=== PATIENT | female | born 1995 ===

== ENCOUNTER 2024-01-06 10:40 | Outpatient (AMB) | payer OTHER, SELFPAY ==
--- NOTE | 2024-01-06 10:28 | AM.OFFWIN_ITS ---
Intake Vital Signs 01/06/24 10:40 Height 5 ft 2 in Weight 223 lb BMI 40.8 BP 110/66 Blood Pressure Location Lt brachial Position Sitting Pulse 88 Pulse Source Pulse Oximeter Temp 98.0 F Temp Source Temporal Artery Scan Pulse Oximetry (%) 97 Oxygen Delivery Method Room Air Intake Visit Reasons: [employer]GER Right Ring Finger swelling x3 days Intake Note: pt is here today for rt ring finger swelling started 3 days ago Patient Tobacco Use Status: Never used Tobacco Allergies sulfamethoxazole [From Bactrim] Allergy (Mild, Verified 01/06/24 10:43) Unknown trimethoprim [From Bactrim] Allergy (Mild, Verified 01/06/24 10:43) Unknown Do you need a note to return to daycare/school/sports/work: Yes HPI HPI Comments History of Present Illness Details Patient is a 28-year-old female complaining of right-sided ring finger swelling and pain x3 days. She states she did not injure it. She does not remember getting bit by any bugs. She states there has never been a rash of any kind. She states she does work out a lot and lift weights and is wondering if she may have lifted a weight weird and injured it. She says she can still move it fully but it hurts when she does. She has not taken any medication to make it feel better, nor has she used ice. She states she has just been messing with it to try to get it to feel better. [facility] Social History Patient Tobacco Use Status: Never used Tobacco Review of Systems Const All systems reviewed & are unremarkable except as noted in HPI and below Physical Exam Vital Signs: Last Vital Signs Temp 98.0 F 01/06/24 10:40 Pulse 88 01/06/24 10:40 BP 110/66 01/06/24 10:40 Pulse Ox 97 01/06/24 10:40 Oxygen Delivery Method Room Air 01/06/24 10:40 BMI result Body Mass Index 40.8 Const General: cooperative, healthy appearing, comfortable, no acute distress and well developed Orientation/consciousness: patient oriented x3 Limitations: no limitations Eyes General: appearance normal, both eyes and all related structures Resp Effort & Inspection: normal respiratory effort and able to speak in complete sentences Neuro General: patient oriented x3 Extrem Right upper extremity: Extremity exam: right hand Details: normal capillary refill, neuromotor exam normal, neurosensory exam normal, tenderness Location: of the 4th digit Location: at the PIP joint, abnormal ROM of finger (Can extend the 4th digit but with some pain; ) and swelling Location: of the 4th digit (slightly swollen) Location: involving the entire digit; no abrasions, no lacerations, no ecchymosis and no puncture wound Assessment & Plan Assessment & Plan (1) Finger sprain: Code(s): S63.619A - Unspecified sprain of unspecified finger, initial encounter Qualifiers: Encounter type: initial encounter Finger: ring finger Sprain of finger site: interphalangeal joint Laterality: right Qualified Code(s): S63.634A - Sprain of interphalangeal joint of right ring finger, initial encounter Plan: Connor taped finger, gave extra supplies, advised to rest and use ibuprofen. If not better she can return and we can do an x-ray but x-ray is not indicated today. Plan see above Coding Level of Care Code New Pt Level 3 (95327) Diagnoses Sprain of interphalangeal joint of right ring finger, initial encounter S63.634A Encounter type: initial encounter Finger: ring finger Sprain of finger site: interphalangeal joint Laterality: right
[2024-01-06 10:40] VITALS: BP 110/66; PULSE 88; TEMP 36.7; O2SAT 97; BMI 40.8
== END 2024-01-06 11:50 | disposition home or self-care (01) ==
PROVIDERS: Visit Provider Physician Assistant
DX: S63.634A Sprain of interphalangeal joint of right ring finger, initial encounter (principal)
CPT/HCPCS: 99203